=== PATIENT | male | born 2000 | race Caucasian/White ===

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

== ENCOUNTER 2022-02-02 10:44 | Emergency (ER) | payer OTHER, MEDICAID ==
[~2022-02-02] VITALS: Ht 187.9 cm; Wt 113.6 kg
--- NOTE | 2022-02-02 11:13 | ED Integumentary General ---
General Chief Complaint: Skin/Wound Problems Stated Complaint: R LITTLE TOE LAC Nursing Triage Note: PT STATES HE CUT HIS RIGHT SMALL TOE ON A DOORWAY 2 DAYS AGO AND IT KEEPS BLEEDING Source: patient Exam Limitations: no limitations History of Present Illness Date Seen by Provider: Feb 02, 2022 Time Seen by Provider: 11:10 Initial Comments This is a well-appearing 21-year-old male who presented to the ER via POV with complaints of laceration to his right fifth toe that occurred 2 days ago. States that he was walking across his floor in an area between the living room and kitchen is uneven and his "toe was caught between the living room floor in the kitchen tile. He is having increasing pain and redness to the area. States that whenever he bumps his foot it starts to bleed again. Would like his toe evaluated. Allergies and Home Medications Allergies Coded Allergies: Tetanus (Verified Allergy, Intermediate, LOCAL REACTION, 04/09/12) Patient Home Medication List Home Medication List Reviewed: Yes Cephalexin (Cephalexin) 500 Mg Tablet, 500 MG PO TID Prescribed by: SHANNON ROSS on 02/02/22 1149 Review of Systems Review of Systems Constitutional: no symptoms reported EENTM: no symptoms reported Respiratory: no symptoms reported Musculoskeletal: see HPI Skin: see HPI Past Wwlqfrw-Dougcc-Ecqotc Hx Patient Social History Tobacco Use?: No Smoking Status: Never a Smoker Substance use?: No Alcohol Use?: No Pt feels they are or have been: No Immunizations Up To Date Tetanus Booster (TDap): Less than 5yrs PED Vaccines UTD: Yes Seasonal Allergies Seasonal Allergies: Yes Past Medical History Surgeries: No Adenoidectomy, Tonsillectomy Respiratory: No Cardiac: No Neurological: No Reproductive Disorders: No Sexually Transmitted Disease: No HIV/AIDS: No Genitourinary: No Gastrointestinal: No Musculoskeletal: No Endocrine: No HEENT: No Cancer: No Psychosocial: Yes ADD/ADHD Integumentary: No Blood Disorders: No Adverse Reaction/Blood Tranf: No Physical Exam Vital Signs Vital Signs - First Documented 02/02/22 10:52 Temp 36.5 Pulse 75 Resp 16 B/P (MAP) 110/73 (85) Pulse Ox 97 Capillary Refill : Less Than 3 Seconds General Appearance: WD/WN, no apparent distress HEENT: PERRL/EOMI, normal ENT inspection Neck: full range of motion, normal inspection Neurologic/Psychiatric: alert, normal mood/affect, oriented x 3 Skin: normal color, warm/dry Skin Problem Location: other (right 5th toe (U) shaped laceration extending into nail. ) Skin Problem Character: erythema, warm Progress/Results/Core Measures Results/Orders My Orders Orders - SHANNON ROSS APRN Toe(S) (02/02/22 11:10) Vital Signs/I&O 02/02/22 10:52 Temp 36.5 Pulse 75 Resp 16 B/P (MAP) 110/73 (85) Pulse Ox 97 Blood Pressure Mean: 85 Progress Progress Note : Progress Note Patient examined and in no acute distress. He has been using Band-Aids to keep the skin compressed. He has no bleeding at this time. His toe is very dirty with possibly some kind of animal hair on the dried blood. States that he is allergic to the tetanus vaccine. We will go ahead and obtain images to evaluate for any fracture and provide wound care. X-ray negative for acute fracture, nursing to cleanse site, dress, and place in flat shoe to prevent him from re-opening site. Will place on Keflex as site is very dirty with erythema. Discharge POC reviewed and he is agreeable with plan. Diagnostic Imaging Diagonstic Imaging: Xray Comments [facility] [place] NAME: BRAULIO SCOTT [facility] REC#: [id number] PT STATUS: REG ER : 2001 PHYSICIAN: SHANNON ROSS APRN ADMIT DATE: 02/02/22/ER Draft Date of Exam:02/02/22 TOE(S) HISTORY: Pain in the right 5th toe TECHNIQUE: 3 views of the right 5th toe. COMPARISON: 01/09/2013 FINDINGS: No acute fracture is seen in the right 5th toe. Alignment appears normal. Joint spaces are preserved. No cortical erosions are seen. No radio opaque foreign body is identified. IMPRESSION: 1. No acute osseous abnormality is seen in the right 5th toe. Dictated on workstation # [id number] Dict: 02/02/22 1140 Trans: 02/02/22 1142 [facility] [id number] Interpreted by: HODAN MCCORMACK MD Electronically signed by: Reviewed: Reviewed by Me Departure Impression Primary Impression: Laceration of toe of right foot with damage to nail Disposition: 01 HOME, SELF-CARE Condition: Improved Departure-Patient Inst. Decision time for Depature: 11:46 Referrals: [facility] (PCP/Family) Primary Care Physician Patient Instructions: Toe Injury (DC), Wound Care ED Add. Discharge Instructions: Plan: 1. Wear flat shoe for next 5 days to allow toe to heal without reopening laceration site. 2. Wash daily with mild soap and water, pat dry, keep clean as best you can. Avoid soaking or swimming. 3. Take antibiotics three times a day as directed to prevent infection. 4. Return for any new, concerning, or worsening symptoms. All discharge instructions reviewed with patient and/or family. Voiced understanding. Scripts Cephalexin (Cephalexin) 500 Mg Tablet 500 MG PO TID for 5 Days, #15 TAB 0 Refills Prov: SHANNON ROSS APRN 02/02/22 Work/School Note: Work Release Form Date Seen in the Emergency Department: Feb 02, 2022 Return to Work: Feb 07, 2022 Restrictions: No Restrictions SHANNON ROSS BURNER TECHNICIAN Feb 02, 2022 11:13
--- NOTE | 2022-02-02 11:42 | Diagnostic Imaging Report ---
HISTORY: Pain in the right 5th toe TECHNIQUE: 3 views of the right 5th toe. COMPARISON: 01/09/2013 FINDINGS: No acute fracture is seen in the right 5th toe. Alignment appears normal. Joint spaces are preserved. No cortical erosions are seen. No radio opaque foreign body is identified. IMPRESSION: 1. No acute osseous abnormality is seen in the right 5th toe. Dictated by: Dictated on workstation # [id number]
[2022-02-02] MEDS ORDERED: CEPH500T PO (11:49)
[2022-02-02 11:58] VITALS: BP 110/73
== END 2022-02-02 11:58 | disposition home or self-care (01) ==
LOC: EDUNIT# 10:44 → ER 10:46
DX: S91.214A Laceration without foreign body of right lesser toe(s) with damage to nail, initial encounter (principal); Z88.7 Allergy status to serum and vaccine; Z88.1 Allergy status to other antibiotic agents; W23.1XXA Caught, crushed, jammed, or pinched between stationary objects, initial encounter; Y92.008 Other place in unspecified non-institutional (private) residence as the place of occurrence of the external cause
CPT/HCPCS: 73660